=== PATIENT | female | born 1995 | race Caucasian/White ===

== ENCOUNTER 2019-05-04 03:38 | Emergency (ER) | payer SELFPAY ==
[2019-05-04] MEDS ORDERED: traMADol HCl 50 MG TAB ONE ×2 (03:49)
== END 2019-05-04 03:53 | disposition home or self-care (01) ==
LOC: ERS 03:38
DX: K03.81 Cracked tooth (principal); K02.9 Dental caries, unspecified; F41.9 Anxiety disorder, unspecified; F32.9 Major depressive disorder, single episode, unspecified; F43.10 Post-traumatic stress disorder, unspecified; F17.210 Nicotine dependence, cigarettes, uncomplicated
CPT/HCPCS: 99282

== ENCOUNTER 2019-11-25 15:29 | Emergency (ER) | payer SELFPAY ==
[2019-11-25] MEDS ORDERED: HYDROcodone/Acetaminophen 5/325 mg Tablet ONE (16:23)
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
== END 2019-11-25 20:22 | disposition home or self-care (01) ==
LOC: ERS 15:29
DX: M50.122 Cervical disc disorder at C5-C6 level with radiculopathy (principal); F41.9 Anxiety disorder, unspecified; F32.9 Major depressive disorder, single episode, unspecified; F17.210 Nicotine dependence, cigarettes, uncomplicated; F43.10 Post-traumatic stress disorder, unspecified
CPT/HCPCS: 72125; 72141